=== PATIENT | male | born 1990 | race American Indian/Alaskan Native ===

== ENCOUNTER 2018-12-31 08:24 | Emergency (ER) | payer OTHER ==
[2018-12-31 08:36] VITALS: BP 124/74
[2018-12-31] MEDS ORDERED: DUONEB *Not for PRN Use IH ONE (08:52)
--- NOTE | 2018-12-31 08:59 | Emergency Department Report ---
HPI - General Chief Complaint: Dyspnea/Respdistress Time Seen by Provider: 12/31/18 08:47 - HPI HPI: 28-year-old -[place] male presents to the emergency department with a complaint of some midsternal chest pain and shortness of breath. He had this last night was able to get some sleep. However he woke up with these symptoms again, which concerned him, so he came in for further evaluation. He has a past medical history of HIV but says he is compliant with his medications and follows with an infectious disease physician. No recent travel or sick contacts at home. He has not taken anything for her symptoms prior to presentation. He denies any tobacco or illicit drug use. ED Past Medical Hx - Past Medical History Previous Medical History?: No - Surgical History Past Surgical History?: No - Social History Smoking Status: Never Smoker Substance Use Type: Alcohol - Medications Home Medications: Home Medications Medication Instructions Recorded Confirmed Last Taken Type ALBUTEROL Inhaler (OR & NICU) 2 puff IH QID PRN #1 inhalation 12/31/18 Unknown Rx [ProAir HFA Inhaler] ED Review of Systems ROS: Stated complaint: ANISA/ABD PAIN/CHEST PAIN Other details as noted in HPI Comment: All other systems reviewed and negative Constitutional: denies: chills, fever Eyes: denies: eye pain, vision change ENT: denies: ear pain, throat pain Respiratory: shortness of breath. denies: cough Cardiovascular: chest pain. denies: palpitations Gastrointestinal: denies: abdominal pain, vomiting Genitourinary: denies: urgency, dysuria Musculoskeletal: denies: back pain, arthralgia Skin: denies: rash, lesions Neurological: denies: headache, weakness Physical Exam - Physical Exam Vital Signs: Vital Signs 12/31/18 08:34 Temperature 98 F Pulse Rate 78 Respiratory 18 Rate Blood Pressure 124/74 O2 Sat by Pulse 94 Oximetry Physical Exam: GENERAL: The patient is well-developed well-nourished. HENT: Normocephalic. Atraumatic. Patient has moist mucous membranes. EYES: Extraocular motions are intact. NECK: Supple. Trachea is midline. CHEST/LUNGS: Clear to auscultation. There is no respiratory distress noted. HEART/CARDIOVASCULAR: Regular. There is no tachycardia. There is no murmur. ABDOMEN: Abdomen is soft, nontender. Patient has normal bowel sounds. There is no abdominal distention. SKIN: Skin is warm and dry. NEURO: The patient is awake, alert, and oriented. The patient is cooperative. The patient has no focal neurologic deficits. The patient has normal speech. MUSCULOSKELETAL: There is no tenderness or deformity. There is no limitation range of motion. There is no evidence of acute injury. ED Course Vital Signs 12/31/18 08:34 Temperature 98 F Pulse Rate 78 Respiratory 18 Rate Blood Pressure 124/74 O2 Sat by Pulse 94 Oximetry ED Medical Decision Making - Lab Data Result diagrams: 12/31/18 09:04 12/31/18 09:04 - EKG Data -: EKG Interpreted by Me EKG shows normal: sinus rhythm, axis, intervals, QRS complexes, ST-T waves Rate: normal - EKG Data When compared to previous EKG there are: previous EKG unavailable Interpretation: normal EKG - Radiology Data Radiology results: image reviewed interpreted by me: Chest x-ray does not show any acute process. There are no pleural effusions, obvious pneumonia and there is no pneumothorax. - Medical Decision Making This patient presents with a complaint of some chest pain and shortness of breath that happened last night and then again this morning after waking. EKG is normal without ST elevation NH, ischemia or dysrhythmia. Chest x-ray does not show any focal consolidation, pneumothorax, pneumonia, pleural effusions, or any other acute process. Labs were unremarkable including CBC, metabolic panel and a troponin. The patient was given a breathing treatment. Upon reevaluation he is feeling greatly improved. He is low on the heart score criteria without any personal or family history or risk factors for coronary artery disease. Patient has been encouraged to follow up with primary care and return to the ER with any worsening of symptoms or any acute distress. The patient is also very low on the well's score criteria and negative on the pulmonary embolism rule out criteria. - Differential Diagnosis NH, costochondritis, GERD, pneumonia Critical Care Time: No Critical care attestation.: If time is entered above; I have spent that time in minutes in the direct care of this critically ill patient, excluding procedure time. ED Disposition Clinical Impression: Atypical chest pain, Shortness of breath Disposition: - TO HOME OR SELFCARE Is pt being admited?: No Condition: Stable Instructions: Chest Pain (ED), Dyspnea (ED) Additional Instructions: Please follow-up with your primary care physician in the next few days. Return to the emergency department with any return or worsening of your symptoms, or with any acute distress. Prescriptions: ALBUTEROL Inhaler (OR & NICU) [ProAir HFA Inhaler] 2 puff IH QID PRN #1 inhalation PRN Reason: Shortness Of Breath Referrals: LILLIE SAM MD [Staff Physician] - 3-5 Days [facility] [Outside] - 3-5 Days Time of Disposition: 10:39 Heart Score - HEART Score History: Slightly suspicious EKG: Normal Age: < 45 Risk factors: No known risk factors Troponin: < normal limit HEART Score: 0 - Critical Actions Critical Actions: 0-3 pts:0.9-1.7%risk of adverse cardiac event.Candidate for discharge
[2018-12-31 09:43] LABS: Basophils % (Auto) 0.5 % (0.0-1.8); Eosinophils # (Auto) 0.1 K/mm3 (0.0-0.4); Eosinophils % (Auto) 3.9 % (0.0-4.3); Hemoglobin 13.6 gm/dl (11.8-15.2); Lymphocytes # (Auto) 1.6 K/mm3 (1.2-5.4); Lymphocytes % (Auto) 42.8 % (13.4-35.0); Mean Corpuscular HGB Conc 34 % (32-34); Mean Corpuscular Volume 92 fl (84-94); Monocytes # (Auto) 0.5 K/mm3 (0.0-0.8); Monocytes % (Auto) 13.7 % (0.0-7.3); Platelet Count 250 K/mm3 (140-440); Red Blood Count 4.36 M/mm3 (3.65-5.03); Red Cell Distribution Width 13.3 % (13.2-15.2)
[2018-12-31 10:03] LABS: BUN/Creatinine Ratio 9; Blood Urea Nitrogen 12 mg/dL (9-20); Calcium 9.1 mg/dL (8.4-10.2); Hemolysis Index 2
--- NOTE | 2018-12-31 10:52 | XRay Report ---
EXAM: XR CHEST ROUTINE 2V HISTORY: Dyspnea TECHNIQUE: PA and lateral chest x-ray dated December 31, 2018 at 9:17 AM. COMPARISON: None available. FINDINGS: The heart size and mediastinum are within normal limits. The lung palomares and costophrenic angles are clear. There is no acute parenchymal infiltrate, pleural effusion, or pneumothorax seen. The visua lized bony structures are within normal limits. IMPRESSION: 1. No evidence for acute cardiopulmonary disease seen. This document is electronically signed by Sinan Alvarez MD., December 31 2018 10:50:34 AM ET
== END 2018-12-31 10:44 | disposition home or self-care (01) ==
LOC: ED 08:24
DX: R07.2 Precordial pain (principal); R06.02 Shortness of breath; Z21 Asymptomatic human immunodeficiency virus [HIV] infection status
CPT/HCPCS: 36415; 71046; 80048; 84484; 85025; 93005; 93010; 94640